=== PATIENT | female | born 1970 | race Caucasian/White ===

== ENCOUNTER 2018-07-13 12:17 | Oncology outpatient (ONC) | payer OTHER, SELFPAY ==
--- NOTE | 2018-07-13 12:26 | ONC.PN ---
PN -Subjective Interval history: Chief Complaint: 48 year old with TNBC right side History of Present Illness: Remote history of triple-negative right-sided breast cancer. Patient was initially diagnosed with multiple sclerosis in 2008. As part of that initial medical triage, she was found to have cancer in her right breast. This was a high-grade invasive ductal carcinoma. She had triple-negative disease. The Ki-67 was quite elevated at 40% to 50%. The patient went on to receive neoadjuvant chemotherapy with Cytoxan/Taxotere/carboplatin between May 2008 and September 2008. She then underwent a partial right mastectomy and kathleen dissection. One of 46 lymph nodes was positive for metastatic disease. The patient did receive postoperative consolidation radiation therapy. She has been followed closely since that time. Her final breast cancer staging was T3 N1 M0, grade 3, stage III. Last mammography screening on 12/02/2017 (NAD). She had had her ovaries removed. Negative BRCA testing in 2008. Interim Events: Maryjo returns today by herself because her medical marijuana authorization form is out-dated. She needs a new signed form. Clinically patient reports no new symptoms. Patient is now using marijuana tincture CBD/THC once a day. She said that the marijuana is very helpful as far as fatigue is concerned. She denies any other new signs or symptoms. Patient is on wheelchair because she is having problems walking due to the concurrent multiple sclerosis. She is now being followed by Dr. Ordoñez at [facility]. She is currently on treatment with Ocrevus since September of 2017. - Additional ROS All systems PM: reviewed and no additional remarkable complaints except as stated Home Medications and Allergies Home Medications Medication Instructions Recorded Confirmed Type [PROBIOTIC] 1 tab PO DAILY #0 06/28/17 07/13/18 History amantadine HCl 100 mg PO BID #0 06/28/17 07/13/18 History calcium carbonate 500 mg PO BID #0 06/28/17 07/13/18 History cholecalciferol (vitamin D3) 2,000 u PO BID #0 06/28/17 07/13/18 History [Vitamin D3] coenzyme Q10 [Co Q-10] 100 mg PO QDAY #0 06/28/17 07/13/18 History dalfampridine [Ampyra] 10 mg PO BID #0 06/28/17 07/13/18 History omega 7-lop-uyi-fish oil [Fish Oil] 1,000 mg PO QDAY #0 06/28/17 07/13/18 History [OCREVUS] IM/IV #0 01/05/18 History oxybutynin chloride [Ditropan XL] 5 mg PO QDAY #0 01/05/18 07/13/18 History Exam Vital signs: T97.5, HR77, RR 16, BP 106/68, 98%RA, Height 162.1 LB, HT 70'', ECOG 1 Narrative: Constitutional: Well developed, well nourished, not in any acute respiratory distress, average body habitus, well groomed, pleasant and cooperative, in wheelchair HEENT: Normocephalic atraumatic. Extraocular muscle movement intact. Pupils are round, equal and reactive to light and accommodations. Anicteric sclera. No hearing difficulty; Oral mucus membrane moist and without ulcers. Neck: Supple, symmetrical, and tracheal midline; No palpable thyromegaly and no palpable lymph nodes. Respiratory: No use of accessory muscles. Clear to auscultation, and no wheezes or rales or rubs. Cardiovascular: Regular rate and rhythm, S1 and S2 normal, no murmurs gallops or rubs. No JVD. No pitting edema of lower extremities. Abdomen: Soft, nontender, non-distended, bowel sounds normal, no palpable organomegaly, no hernia, no palpable masses. Lower extremities: No palpable pedal edema. Lymphatic: no palpable lymph nodes in the neck, axillae, or groins. Musculoskeletal: normal gait and station, no clubbing, no cyanosis, no pitting edema. Skin: no rashes, no ulcers, no petechiae Neurological: Awake and alert and oriented x3. CN II-XII grossly intact. Psychiatric: Good judgment, good insight, normal affect, normal thought process, cooperative, no depression, no anxiety. Breast exam: deferred. Assessment and Plan (1) Triple negative malignant neoplasm of breast Problem details: Right side, high grade, IDC, Ki67 40-50% Neoadjuvant Cytoxan/Taxotere/Carboplatin 05/2008 - 09/2008 Partial right mastectomy with kathleen dissection, positive for metastasis Adjuvant XRT competed On active surveillance since then Plan: I agree with Dr. Vega that her breast cancer most likely is cured. For triple negative breast cancer, it is very unlikely to have a late recurrence. I will continue current regular follow-up. I have ordered a mammogram in November of next year and we will see the patient after the mammography. (2) Medical marijuana use Problem details: Patient currently is using CBD/THC temperature once a day for her fatigue. She said that it is incredibly helpful. Plan: She brought in an old form of medical marijuana use. I have signed a new form and gave the form to the patient. (3) Multiple sclerosis Problem details: Eric 2009 Now on Orevus since Sep 2017. Plan: Continue followed with Dr. Hendrickson for treatment.
--- NOTE | 2018-07-13 12:43 | ONC.NAV ---
Description: Medical Marijuana Authorization Form Activity: Completed this form, signed by Dr. Valdez and provided to pt during her visit today.
[2018-07-13 12:59] VITALS: BP 109/68; PULSE 77; RESP 16; TEMP 36.4; O2SAT 98
== END 2018-07-27 13:21 ==
LOC: ONC 12:21
PROVIDERS: PCP Internal Medicine; Visit Provider Internal Medicine Hematology & Oncology
DX: Z08 Encounter for follow-up examination after completed treatment for malignant neoplasm (principal); Z85.3 Personal history of malignant neoplasm of breast; G35 Multiple sclerosis
CPT/HCPCS: 99214

== ENCOUNTER → 2018-11-24 13:09 | Outpatient (CLI) | payer OTHER, SELFPAY ==
--- NOTE | 2018-11-24 | DI.MG.S_ITS ---
BILATERAL DIGITAL SCREENING MAMMOGRAM 3D/2D WITH CAD: 11/24/2018 CLINICAL: Routine screening. Personal history of right breast cancer. Family history of breast cancer. Comparison is made to exams dated: 12/02/2017 mammogram - [facility], 12/01/2016 mammogram, and 11/03/2015 mammogram - [facility]. The tissue of both breasts is extremely dense, which lowers the sensitivity of mammography. Current study was also evaluated with a Computer Aided Detection (CAD) system. There are benign post operative findings in the right breast. There also is a benign biopsy clip in the right breast. No significant masses, calcifications, or other findings are seen in either breast. There has been no significant interval change. IMPRESSION: There is no mammographic evidence of malignancy. A 1 year screening mammogram is recommended. This exam was interpreted at Station ID: [id number]. NOTE: For mammograms, a report in lay terms will be sent to the patient. Approximately 15% of breast malignancies will not be visualized mammographically. In the management of a palpable breast mass, a negative mammogram must not discourage biopsy of a clinically suspicious lesion. Electronically Signed By: Rojelio gordon/tree:11/24/2018 18:32:39 copy to: Octavia Ocampo letter sent: Normal Exam ACR BI-RADS Category 2: Benign Finding(s) 3342F
== END ==
PROVIDERS: PCP Internal Medicine; Visit Provider Internal Medicine Hematology & Oncology
DX: Z12.31 Encounter for screening mammogram for malignant neoplasm of breast (principal); Z85.3 Personal history of malignant neoplasm of breast; Z80.3 Family history of malignant neoplasm of breast
CPT/HCPCS: 77063; 77067

== ENCOUNTER → 2019-11-26 13:56 | Outpatient (CLI) | payer OTHER, SELFPAY ==
--- NOTE | 2019-11-26 13:58 | DI.MG.S_ITS ---
BILATERAL DIGITAL SCREENING MAMMOGRAM 3D/2D WITH CAD: 11/26/2019 CLINICAL: Routine screening. Personal history of breast cancer. Comparison is made to exams dated: 11/24/2018 mammogram, 12/02/2017 mammogram - [facility], and 12/01/2016 mammogram - [facility]. The tissue of both breasts is extremely dense, which lowers the sensitivity of mammography. Current study was also evaluated with a Computer Aided Detection (CAD) system. There are benign post operative findings and biopsy clip in the right breast. No significant masses, calcifications, or other findings are seen in either breast. There has been no significant interval change. IMPRESSION: There is no mammographic evidence of malignancy. A 1 year screening mammogram is recommended. This exam was interpreted at Station ID: [id number]. NOTE: For mammograms, a report in lay terms will be sent to the patient. Approximately 15% of breast malignancies will not be visualized mammographically. In the management of a palpable breast mass, a negative mammogram must not discourage biopsy of a clinically suspicious lesion. Electronically Signed By: Griffin mary/tree:11/26/2019 19:11:32 letter sent: Normal Exam ACR BI-RADS Category 2: Benign Finding(s) 3342F
== END ==
PROVIDERS: PCP Internal Medicine; Referring Provider Internal Medicine Hematology & Oncology; Visit Provider Internal Medicine Hematology & Oncology
DX: Z12.31 Encounter for screening mammogram for malignant neoplasm of breast (principal); Z85.3 Personal history of malignant neoplasm of breast
CPT/HCPCS: 77063; 77067

== ENCOUNTER → 2019-12-10 11:40 | Oncology outpatient (ONC) | payer OTHER, SELFPAY ==
[2018-12-11 13:45] VITALS: BP 117/83; PULSE 86; RESP 18; TEMP 36.3; O2SAT 97
--- NOTE | 2018-12-11 13:59 | P.PNONC_ITS ---
PN -Subjective Interval history: Good appetite. stable weight. No headache. No pain in the bones. no shortness of breath. no chest pain. No lumps and bumps. No abdominal pain. No diarrhea and no constipation. On 11/24/2018, she underwent screening mammogram that showed no mammographic evidence of malignancy. History of Present Illness: Remote history of triple-negative right-sided breast cancer. Patient was initially diagnosed with multiple sclerosis in 2008. As part of that initial medical triage, she was found to have cancer in her right breast. This was a high-grade invasive ductal carcinoma. She had triple-negative disease. The Ki- 67 was quite elevated at 40% to 50%. The patient went on to receive neoadjuvant chemotherapy with Cytoxan/Taxotere/carboplatin between May 2008 and September 2008. She then underwent a partial right mastectomy and kathleen dissection. One of 46 lymph nodes was positive for metastatic disease. The patient did receive postoperative consolidation radiation therapy. She has been followed closely since that time. Her final breast cancer staging was T3 N1 M0, grade 3, stage III. Last mammography screening on 12/02/2017 (NAD). She had had her ovaries removed. Negative BRCA testing in 2008. Patient is now using marijuana tincture CBD/THC once a day which is very helpful as far as fatigue is concerned. Patient is using wheelchair because she is having problems walking due to the concurrent multiple sclerosis. She is now being followed by Dr. Ordoñez at [facility]. She is currently on treatment with Ocrevus since September of 2017. - Patient Self-Reported Symptoms SR Neuro issues: Difficulty balancing - Additional ROS All systems PM: reviewed and no additional remarkable complaints except as stated Home Medications and Allergies Home Medications Medication Instructions Recorded Confirmed Type amantadine HCl 100 mg PO BID #0 06/28/17 12/11/18 History calcium carbonate 500 mg PO BID #0 06/28/17 12/11/18 History cholecalciferol (vitamin D3) 2,000 u PO BID #0 06/28/17 12/11/18 History [Vitamin D3] coenzyme Q10 [Co Q-10] 100 mg PO QDAY #0 06/28/17 12/11/18 History dalfampridine [Ampyra] 10 mg PO BID #0 06/28/17 12/11/18 History omega 9-yjo-fdh-fish oil [Fish Oil] 1,000 mg PO QDAY #0 06/28/17 12/11/18 History [OCREVUS] IM/IV #0 01/05/18 History oxybutynin chloride [Ditropan XL] 5 mg PO QDAY #0 01/05/18 12/11/18 History Exam Vital signs: Vital Signs Temp Pulse Resp BP Pulse Ox 12/11/18 13:45 97.3 F L 86 18 117/83 97 Intake and Output 12/10/18 12/11/18 12/11/18 23:59 07:59 15:59 Other: Weight 71.8 kg Patient Weight 12/11/18 23:59 Weight 71.8 kg ECOG 1 Narrative: Constitutional: Well developed, well nourished, not in any acute respiratory distress, average body habitus, well groomed, pleasant and cooperative, in wheelchair HEENT: Normocephalic atraumatic. Extraocular muscle movement intact. Pupils are round, equal and reactive to light and accommodations. Anicteric sclera. No hearing difficulty; Oral mucus membrane moist and without ulcers. Neck: Supple, symmetrical, and tracheal midline; No palpable thyromegaly and no palpable lymph nodes. Respiratory: No use of accessory muscles. Clear to auscultation, and no wheezes or rales Cardiovascular: Regular rate and rhythm, S1 and S2 normal, no murmurs gallops or rubs. No JVD. No pitting edema of lower extremities. Abdomen: Soft, nontender, non-distended, bowel sounds normal, no palpable organomegaly, no hernia, no palpable masses. Lower extremities: No palpable pedal edema. Lymphatic: no palpable lymph nodes in the neck, axillae, or groins. Skin: no rashes, no ulcers, no petechiae Neurological: Awake and alert and oriented x3. CN II-XII grossly intact. Psychiatric: Good judgment, good insight, normal affect, normal thought process, cooperative, no depression, no anxiety. Breast exam: RIGHT: no nipple retraction, no skin changes, previous surgical incision noted, no palpable masses or nodules, no lymph nodes in the right axilla; LEFT: no nipple retraction, no skin changes, no palpable masses or nodules, no lymph nodes in the left axilla; All physical examinations were chaperoned Results - Labs Reviewed. Assessment and Plan (1) Triple negative malignant neoplasm of breast Problem details: Right side, high grade, IDC, Ki67 40-50% Neoadjuvant Cytoxan/Taxotere/Carboplatin 05/2008 - 09/2008 Partial right mastectomy with kathleen dissection, positive for metastasis Adjuvant XRT competed On active surveillance since then Assessment: I reviewed the mammogram with patient. I don't there is any evidence of recurrence or metastasis of her breast cancer. I will continue annual mammogram. Plan: 1. RTC in 1 years, CBC, CMP, mammogram (2) Nevus of back Assessment and Plan: Suspicious nevi in the upper back. Will refer to dermatology for evaluation,.
--- NOTE | 2018-12-12 14:21 | ONC.SCHED ---
CALLED AND SCHEDULED THIS PATIENT WITH [facility]. HER APT. IS 01/04/19 @3PM. CALLING THE PATIENT NOW TO INFORM HER OF HER APT.
--- NOTE | 2019-09-25 10:14 | ONC.SCHED ---
patient's mother, Dayanna called and is working on getting a new [place] auth for Maryjo's November appointment . . . Allyn is no longer covering her primary care physician's office ([facility]) so she'll work on finding a new primary care physician and let us know
--- NOTE | 2019-09-25 14:01 | ONC.MSW ---
Description: T/C re: Medical Marijuana Auth Activity: Completed a renewal form, pt will p/u sometime tomorrow in pt will-call box.
--- NOTE | 2019-12-10 12:07 | ONC.PN ---
PN -Subjective Interval history: ID/CC: 49-year-old female with multiple sclerosis and diagnosis of right breast triple negative breast cancer. She presents here today for scheduled annual follow-up visit as far as breast cancer is concerned. HPI: She has a remote history of triple-negative right-sided breast cancer. Patient was initially diagnosed with multiple sclerosis in 2008. As part of that initial medical triage, she was found to have cancer in her right breast. This was a high-grade invasive ductal carcinoma. She had triple-negative disease. The Ki-67 was quite elevated at 40% to 50%. The patient went on to receive neoadjuvant chemotherapy with Cytoxan/Taxotere/carboplatin between May 2008 and September 2008. She then underwent a partial right mastectomy and kathleen dissection. One of 46 lymph nodes was positive for metastatic disease. The patient did receive postoperative consolidation radiation therapy. She has been followed closely since that time. Her final breast cancer staging was T3 N1 M0, grade 3, stage III. Last mammography screening on 12/02/2017 (NAD). She had had her ovaries removed. Negative BRCA testing in 2008. Patient has been using marijuana tincture CBD/THC once a day which is very helpful as far as fatigue is concerned. Patient is using wheelchair because she is having problems walking due to the concurrent multiple sclerosis, for which patient has been on Ocrevus since September of 2017. Interim Events : She came in here today accompanied by her mother. Patient underwent mammogram on 11/26/2019. The mammogram showed no evidence of malignancy. A 1 year screening mammogram is recommended. Clinically, patient has been experiencing progression of the underlying multiple sclerosis. Patient currently is being followed by Dr. Swan at [facility]. She denies any new lumps and bumps in the breasts. - Patient Self-Reported Symptoms SR Neuro issues: Difficulty balancing - Additional ROS All systems PM: reviewed and no additional remarkable complaints except as stated Home Medications and Allergies Home Medications Medication Instructions Recorded Confirmed Type amantadine HCl 100 mg PO BID #0 06/28/17 12/11/18 History calcium carbonate 500 mg PO BID #0 06/28/17 12/11/18 History cholecalciferol (vitamin D3) 2,000 u PO BID #0 06/28/17 12/11/18 History [Vitamin D3] coenzyme Q10 [Co Q-10] 100 mg PO QDAY #0 06/28/17 12/11/18 History dalfampridine [Ampyra] 10 mg PO BID #0 06/28/17 12/11/18 History omega 0-thn-ltn-fish oil [Fish Oil] 1,000 mg PO QDAY #0 06/28/17 12/11/18 History [OCREVUS] IM/IV #0 01/05/18 History oxybutynin chloride [Ditropan XL] 5 mg PO QDAY #0 01/05/18 12/11/18 History alpha lipoic acid 600 mg PO DAILY 12/10/19 12/10/19 History Exam Vital signs: 12/10/19 12:19 Last Vital Signs Temp 97.9 F 12/10/19 12:14 Pulse 87 12/10/19 12:14 Resp 16 12/10/19 12:14 BP 122/71 12/10/19 12:14 Pulse Ox 98 12/10/19 12:14 Narrative: ECOG 1 Gen: WDWN, NAD, pleasant and cooperative. Accompanied by her mother. HEENT: NCAT, EOMI, PERRLA, anicteric sclera. Neck: Supple, No palpable thyromegaly or lymphadenopathy. Respiratory: CTAB, no wheezes audible. No JVD Cardiovascular: RRR, S1 and S2 normal, no M/G/R. Abdomen: Soft, NTND, BS normal, no palpable organomegaly Extremities: No LE pitting edema. Lymphatic: no palpable lymph nodes in the neck, axillae Neurological: AOx3, CN II-XII grossly intact. No focal motor or sensory deficit. Psychiatric: Normal affect, appropriate mood, no depression, no anxiety. I did not perform any breast exams today. Assessment and Plan (1) Triple negative malignant neoplasm of breast Overview: Right side, high grade, IDC, Ki67 40-50%. Neoadjuvant Cytoxan/Taxotere/Carboplatin 05/2008 - 09/2008. Partial right mastectomy with kathleen dissection, positive for metastasis. Adjuvant XRT competed. On active surveillance since then Assessment: I reviewed the mammogram with patient. I don't there is any evidence of recurrence or metastasis of her breast cancer. I will continue annual mammogram. I did not perform any breast exam today. I talked with her that if she notices any new findings or she does not feel comfortable, she needs to call us for for an early follow-up visit. She and her mother both voiced understanding. Plan: RTC in 1 year, CBC, CMP, mammogram (2) Nevus of back The suspicious nevi in the upper back I noticed about a year ago was deemed a benign changes by her Dermatology. Instead patient underwent a Mohs procedure for the left temporal basal cell carcinoma. I encouraged the patient continue follow-up with her primary care doctor and director product safety.
[2019-12-10 12:14] VITALS: BP 122/71; PULSE 87; RESP 16; TEMP 36.6; O2SAT 98
== END ==
PROVIDERS: PCP Internal Medicine; Visit Provider Internal Medicine Hematology & Oncology
DX: Z08 Encounter for follow-up examination after completed treatment for malignant neoplasm (principal); Z85.3 Personal history of malignant neoplasm of breast; G35 Multiple sclerosis; R53.83 Other fatigue; Z85.828 Personal history of other malignant neoplasm of skin
CPT/HCPCS: 99214

== ENCOUNTER → 2020-05-30 13:08 | Outpatient (CLI) | payer OTHER, SELFPAY | PROVIDERS: Visit Provider Internal Medicine | DX: M85.852 Other specified disorders of bone density and structure, left thigh (principal); Z78.0 Asymptomatic menopausal state; G35 Multiple sclerosis; Z85.3 Personal history of malignant neoplasm of breast; Z90.722 Acquired absence of ovaries, bilateral; Z82.62 Family history of osteoporosis | CPT/HCPCS: 77080 ==